=== PATIENT | female | born 1980 | race African-American/Black ===

== ENCOUNTER 2024-05-12 09:07 | Emergency (ER) | payer OTHER, SELFPAY ==
[2024-05-12 09:16] VITALS: BP 108/78
--- NOTE | 2024-05-12 10:19 | ED.GENMED ---
History of Present Illness
General
Chief Complaint: Abdominal Pain
Source: patient
Exam Limitations: none
Time Seen by Provider: 05/12/24 09:24
Nursing documentation reviewed up to this point in time: agreed with
Travel History
Have you had any contact with someone who has COVID-19?: No
Do you have any symptoms of coronavirus? Fever > 100 degrees, chills, cough, shortness of breath, sore throat, loss of taste or smell, muscle aches, or headache?: No
History of Present Illness
History of Present Illness:
Patient is a 44-year-old female who presents to the emergency department complaining abdominal pain that became worse over the past 12 to 24 hours. Soft stools with a today as well as nausea and diaphoresis. Patient denies fever but admits to
chills patient has had a hysterectomy. Patient states for the past 2 to 3 years whenever she ate pork products or cured meats she would get abdominal pain. She did have some nausea and vomiting couple years ago with an episode but none really
since. Yesterday the patient had eggs and home fries and developed the pain. Patient states she gets the pain periodically but has become sustained and more severe in the last 24 hours.
Past History
Past History
ED Past Medical History: Other (Hormonal acne)
ED Past Surgical History: Gynecological
Social History
Tobacco: Non-smoker
Review of Systems
Review of Systems
All Other Systems: ROS reviewed and negative except as documented in HPI and ROS
Constitutional: Reports chills
EENT: Reports no symptoms
Respiratory: Reports no symptoms
Cardiac: Reports no symptoms
ABD/GI: Reports abdominal pain, nausea and diarrhea; Denies vomiting, constipated, bloody stools, black stools or anorexia
: Reports no symptoms
Musculoskeletal: Reports no symptoms
Skin: Reports no symptoms
Neurological: Reports no symptoms
Hematologic/Lymphatic: Reports no symptoms
Phy Exam
Physical Exam
Physical Exam:
Physical Exam
General: mild distress, alert and appropriate, well nourished, well hydrated
HENT: Normocephalic, supple with no lymphadenopathy, no thyromegaly
Eyes: Clear sclera, conjuctiva without injection
Heart: Regular rhythm and rate. No S3, S4. No murmur.
Lungs: No respiratory distress, no stridor, lung sounds clear and equal bilaterally
Abdomen: Soft, mild to moderate diffuse tenderness greatest in the upper abdomen without guarding or rebound, no organomegaly, no CVA tenderness, BS good
Neuro: Alert and oriented x 3, CN II - XII intact, no motor focality, no cerebellar dysfunction
Skin: no rash
Psychiatric: well kept. interactive and cooperative
Extremities: No edema, cyanosis, tenderness, Good and equal peripheral pulses.
Course
Orders/Labs/Results
Orders:
Orders
05/12/24 10:16
0.9% Sodium Chloride 1000 ml [Nss] 1,000 ml IV BOLUS
Iohexol [Omnipaque] See Protocol PO NOW STA
Ketorolac [Toradol] 15 mg IM NOW STA
Ondansetron Injectable [Zofran] 4 mg IV NOW STA
05/12/24 10:17
CT Abd/pel W Iv And Oral Contr Urgent
Comment:
Reason For Exam: diffuse abd pain/tender
US Abdomen Complete/Upper Urgent
Comment:
Reason For Exam: tender upper abd
05/12/24 11:15
Complete Blood Count/With Diff Urgent
Comprehensive Metabolic Panel Urgent
Lipase Urgent
Urinalysis Reflex To Culture Urgent
Date Specimen was Collected: 05/12/24
Time Specimen was Collected: 10:54
Abnormal Lab Results
05/12/24
11:15
RBC 5.51 H 10^6/uL
(4.20-5.40)
05/12/24 11:15
05/12/24 11:15
Vital Signs
Initial and Last Documented VS:
Initial Vital Signs
Temp Pulse Resp BP Pulse Ox
97.7 F 88 16 108/78 98
05/12/24 09:16 05/12/24 09:16 05/12/24 09:16 05/12/24 09:16 05/12/24 09:16
Last Documented Vital Signs
Temp Pulse Resp BP Pulse Ox
97.7 F 92 16 107/51 100
05/12/24 09:16 05/12/24 15:09 05/12/24 09:16 05/12/24 15:09 05/12/24 15:09
*Radiology
Radiology exam reviewed: radiology read reviewed
*Pulse Oximetry
Patient hypoxic: no
*EKG
Interpreted by ED Provider?: NA
*Senior Enlisted Advisor Interpretation
Rate: Senior Enlisted Advisor- N/A
*Critical Care Note
Total Time (30-74mins, 75-104mins- exclusive of procedures): Not Applicable
Update Note
Update Note:
Workup is essentially negative. However patient does appear to be uncomfortable. Discussed findings with her and her. Will start the patient on Carafate and Protonix. Will refer the patient to GI. Believe this is more to do with either
food intolerance or gastritis. Does not appear to be peptic ulcer disease. Likewise it does not appear to be gallbladder disease although if needed a HIDA scan could be considered.
ED Attending Note
-
Portions of this chart may have been created with voice recognition software.� Occasional wrong word or��sound alike� substitutions may have occurred due to the inherent limitations of voice recognition software.
Discharge Plan
Departure
Patient Disposition: Home (Routine Discharge)
Date of Disposition: 05/12/24
Time of Disposition: 16:37
Patient with high blood pressure during this ER visit?: No
Condition: Good
Covid-19: Not Applicable
Discharge Problem:
Abdominal pain
Instructions: Acid Reflux and GERD in Adults (DC), Gastritis (DC)
Prescriptions:
New
sucralfate [Carafate] 1 gram tablet
1 g PO QID Qty: 60 0RF
pantoprazole [Protonix] 40 mg tablet,delayed release (DR/EC)
40 mg PO BID Qty: 30 0RF
Referrals:
Denice Perdomo PA-C [Family Provider] - Follow up in 5-7 days
Austin Nuñez MD [Active] - Call in 1-3 days for appt
Activity Restrictions/Additional Instructions:
Tylenol 650 mg every 6 hours for pain. Avoid aspirin, ibuprofen and naproxen.
Interventions
Interventions:
*Risk Screen - Suicide Last Done: 05/12/24 10:21
*General Assessment Last Done: 05/12/24 10:21
*Neglect/Abuse Screening Last Done: 05/12/24 10:21
ED- Fall Risk Assessment Last Done: 05/12/24 14:23
*ED COVID-19 Vaccine History Last Done: 05/12/24 09:16
LU-Mfmdlm-Utvfkultby Assessment Last Done: 05/12/24 10:21
Discharge Date and Time
Print Language: COMORAN
[2024-05-12] MEDS: OMNIPAQUE 50 ML PO (11:26)
[2024-05-12] MEDS: ZOFRAN 4 MG IV (11:27)
[2024-05-12 11:30] LABS: % Basophils 0.4 % (0-2); % Eosinophils 0.4 % (0-6); % Immature Granulocytes 0.1 % (0-0.5); % Lymphocytes 21.1 % (20.5-51.1); % Monocytes 7.6 % (1.7-9.3); % Neutrophils 70.4 % (42.2-75.2); Absolute Lymphocytes 1.5 10^3/uL (1.2-3.4); Absolute Monocytes 0.5 10^3/uL (0.1-0.6); Absolute Neutrophils 4.9 10^3/uL (1.4-6.5); Hematocrit 44.7 % (37.0-47.0); Mean Corp Hgb Conc. 33.6 g/dL (33.0-37.0); Mean Corpuscular Hgb 27.2 pg (27.0-31.0); Mean Corpuscular Volume 81.1 fL (81.0-99.0); Mean Platelet Volume 9.1 fL (7.4-10.4); Nucleated Red Blood Cells % 0 %; Platelet Count 298 10^3/uL (130-400); Red Blood Cell Count 5.51 10^6/uL (4.20-5.40); Red Cell Dist. Width 13.2 % (11.5-14.5)
[2024-05-12] MEDS: NSS 1000 IV (11:30)
[2024-05-12 11:32] LABS: Urine Albumin Trace (Neg - Trace); Urine Bilirubin Negative (Negative); Urine Character Clear (Clear); Urine Color Yellow; Urine Glucose Negative (Negative); Urine Ketone Negative (Negative); Urine Leukocyte Negative (Negative); Urine Nitrite Negative (Negative); Urine Occult Blood Negative (Negative); Urine Specific Gravity 1.015 (<1.030); Urine Urobilinogen Negative (Neg - 1+)
[2024-05-12] MEDS: TORADOL 15 MG IM (11:34)
[2024-05-12 11:42] LABS: ALT (SGPT) 22 U/L (0-35); AST (SGOT) 23 U/L (14-36); Albumin 4.2 g/dl (3.5-5.0); Alkaline Phosphatase 49 U/L (38-126); Blood Urea Nitrogen 13 mg/dl (7-17); Calcium 9.6 mg/dl (8.4-10.2); Carbon Dioxide 30 mmol/L (22-30); Chloride 99 mmol/L (98-107); Glucose 72 mg/dl (70-99); Lipase 46 U/L (23-300); Potassium 4.3 mmol/L (3.5-5.1); Sodium 136 mmol/L (135-145); Total Bilirubin 0.4 mg/dl (0.2-1.3); Total Protein 7.3 g/dl (6.3-8.2); eGFR > 60.00
[2024-05-12 15:09] VITALS: BP 107/51
[2024-05-12 16:47] VITALS: BP 105/72
[2024-05-12 16:48] VITALS: BP 105/72
== END 2024-05-12 16:49 | disposition home or self-care (01) ==
LOC: EMR 09:07
PROVIDERS: EMERGENCY PHYSICIAN Emergency Medicine; FAMILY PHYSICIAN Physician Assistant; REFERRING PHYSICIAN Nurse Practitioner
DX: R10.9 Unspecified abdominal pain (principal); R11.0 Nausea; R19.7 Diarrhea, unspecified; R68.83 Chills (without fever); R61 Generalized hyperhidrosis; Z88.1 Allergy status to other antibiotic agents
CPT/HCPCS: 99285; 96361; 96372; 96374; 74177; 76700; 80053; 81003; 83690; 85025; Q9967

== ENCOUNTER → 2024-06-23 06:31 | Day surgery (SDC) | payer OTHER, SELFPAY | LOC: GI 06:31 | PROVIDERS: ATTENDING PHYSICIAN Internal Medicine Gastroenterology | DX: R19.4 Change in bowel habit (principal); R15.9 Full incontinence of feces; K62.89 Other specified diseases of anus and rectum; K29.80 Duodenitis without bleeding; K29.50 Unspecified chronic gastritis without bleeding; R10.13 Epigastric pain; K31.89 Other diseases of stomach and duodenum | CPT/HCPCS: 45378; 43239; 88305; 88342 ==

== ENCOUNTER → 2024-07-07 17:06 | Outpatient (REF) | payer OTHER, SELFPAY | LOC: MRI 17:06 | PROVIDERS: ATTENDING PHYSICIAN Internal Medicine Gastroenterology; FAMILY PHYSICIAN Physician Assistant | DX: D18.03 Hemangioma of intra-abdominal structures (principal) | CPT/HCPCS: 74183; A9575 ==